=== PATIENT | male | born 1980 | race Caucasian/White ===

== ENCOUNTER 2020-03-17 14:57 | Emergency (ER) | payer OTHER ==
[~2020-03-17] VITALS: Ht 190.5 cm; Wt 87.1 kg
[2020-03-17 15:01] VITALS: BP 147/76
--- NOTE | 2020-03-17 15:09 | NUR ---
wound cleansed, then dressed with non-stick neosporin dressing
[2020-03-17] MEDS ORDERED: DIPH,PERTUSS(ACELL),TET VAC/PF 0.5 ML IM-VACC ONE (15:30)
[2020-03-17 16:09] LABS: BASOPHILS % (AUTO) 0 % (0-1); EOSINOPHILS % (AUTO) 3 % (1-7); LYMPHOCYTES % (AUTO) 17 % (22-44); MEAN CORPUSCULAR HEMOGLOBIN 32.6 pg (27.5-34.5); MEAN CORPUSCULAR HGB CONC 34.3 g/dL (33.2-36.2); MEAN PLATELET VOLUME 8.2 fL (7.4-10.4); MONOCYTES % (AUTO) 5 % (2-9); NEUTROPHILS % (AUTO) 74 % (42-75); PLATELET COUNT 312 x10^3/uL (130-400); RED BLOOD COUNT 4.86 x10^6/uL (4.38-5.82); RED CELL DISTRIBUTION WIDTH 12.5 % (9.4-14.8)
[2020-03-17 16:10] LABS: MD NO
== END 2020-03-17 20:02 | disposition left against medical advice (07) ==
LOC: ED 18:17
DX: L03.012 Cellulitis of left finger (principal)
CPT/HCPCS: 36415; 85025; 99284